=== PATIENT | female | born 1995 | race Hispanic/Latino ===

== ENCOUNTER 2019-04-22 01:40 | Outpatient (CLI) | payer MEDICAID ==
[2019-04-22] MEDS ORDERED: LACTATED RINGERS 1,000 ML IV ONE (06:02)
[2019-04-22 08:57] VITALS: BP 102/55
== END 2019-04-22 09:09 | disposition home or self-care (01) ==
LOC: TRG 01:40
PROVIDERS: ATTEND Obstetrics & Gynecology
DX: O62.9 Abnormality of forces of labor, unspecified (principal); Z3A.39 39 weeks gestation of pregnancy
CPT/HCPCS: 96360; J7120

== ENCOUNTER 2019-04-23 23:18 | Inpatient (IN) | payer MEDICAID ==
[2019-04-23] MEDS ORDERED: OXYTOCIN 20 UNIT/1000ML DRIP 20 UNITS/1,000 ML BAG IV SCH (23:45)
[2019-04-23] MEDS ORDERED: TERBUTALINE 1 MG/1 ML INJ IVP PRN (23:49)
[2019-04-23] MEDS ORDERED: DINOPROSTONE 10 MG VAG SUPP VG ONE (23:49)
[2019-04-23] MEDS ORDERED: TERBUTALINE 1 MG/1 ML INJ SUB-Q PRN (23:49)
[2019-04-23] MEDS ORDERED: ePHEDrine SULFATE 50 MG/1 ML INJ IV PRN (23:49)
[2019-04-23] MEDS ORDERED: MINERAL OIL 30 ML ORAL LIQD PO PRN (23:49)
[2019-04-23] MEDS ORDERED: LIDOCAINE (2%) 20 MG/1 ML VIAL 20 ML MDV INFILTRATI ONE (23:49)
[2019-04-24 00:41] LABS: Hematocrit 37.4 % (30.3-42.9); Hemoglobin 12.8 gm/dl (10.1-14.3); Mean Corpuscular HGB Conc 34 % (30-34); Mean Corpuscular Volume 95 fl (79-97); Platelet Count 210 K/mm3 (140-440); Red Blood Count 3.94 M/mm3 (3.65-5.03); Red Cell Distribution Width 12.8 % (13.2-15.2)
[2019-04-24] MEDS: LACTATED RINGERS 1,000 ML IV SCH ×2 (01:56→08:55)
[2019-04-24] MEDS ORDERED: BUTORPHANOL 2 MG/1 ML INJ IV PRN (04:10)
[2019-04-24] MEDS ORDERED: ZOLPIDEM 5 MG TAB PO ONE (04:10)
[2019-04-24] MEDS ORDERED: fentaNYL 100 MCG/2 ML INJ IV PRN (04:11)
--- NOTE | 2019-04-24 08:49 | History and Physical Report ---
History of Present Illness Date of examination: 04/24/19 Date of admission: 04/23/19 23:25 Chief complaint: SROM clear fluid @ 2100 History of present illness: Pt is a 23yo WF EDC 04/23/19; EGA 40 1/7 weeks presents to L&D complaining of SROM clear fluid @ 2100 04/23/19 followed by irregular contractions. She received care at [facility] [place] since 12 weeks and course has been unremarkable except abnormal Pap. records are available and GBS is Negative. 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 Family/Genetic History: hypertension, cancer Social history: no significant social history, single - Obstetrical History Expected Date of Delivery: 04/23/19 Actual Gestation: 40 Week(s) 1 Day(s) : 1 Medications and Allergies Allergies Allergy/AdvReac Type Severity Reaction Status Date / Time No Known Allergies Allergy Verified 04/22/19 06:05 Home Medications Medication Instructions Recorded Confirmed Last Taken Type Vitamin 1 tab PO DAILY 04/24/19 04/24/19 04/23/19 History Active Meds: Active Medications Butorphanol Tartrate (Stadol) 2 mg IV Q2H PRN PRN Reason: Pain, Moderate (4-6) Last Admin: 04/24/19 04:18 Dose: 2 mg Documented by: Ephedrine Sulfate (Ephedrine Sulfate) 10 mg IV Q2M PRN PRN Reason: Hypotension Fentanyl (Sublimaze) 100 mcg IV Q2H PRN PRN Reason: Labor Pain Oxytocin/Sodium Chloride (Pitocin/Ns 20 Unit/1000ml Drip) 20 units in 1,000 mls @ 125 mls/hr IV DIRECT CHAYO Lactated Ringer's (Lactated Ringers) 1,000 mls @ 125 mls/hr IV DIRECT CHAYO Last Admin: 04/24/19 01:56 Dose: 125 mls/hr Documented by: Mineral Oil (Mineral Oil) 30 ml PO QHS PRN PRN Reason: Constipation Terbutaline Sulfate (Brethine) 0.25 mg SUB-Q ONCE PRN PRN Reason: Hyperstimulation/Hypertonicity Terbutaline Sulfate (Brethine) 0.25 mg IVP ONCE PRN PRN Reason: Hyperstimulation/Hypertonicity Review of Systems All systems: negative - Vital Signs Vital signs: Vital Signs Pulse BP 82 103/63 04/24/19 00:07 04/24/19 00:07 Temp Pulse Resp BP Pulse Ox 97.7 F 76 18 119/35 96 04/24/19 08:26 04/24/19 08:39 04/24/19 08:26 04/24/19 08:26 04/24/19 08:39 - Physical Exam Cardiovascular: Regular rate Lungs: Positive: Clear to auscultation Abdomen: Positive: normal appearance Genitourinary (Female): Positive: normal external genitalia Vagina: Positive: normal moisture Uterus: Positive: enlarged Extremities: Positive: normal - Obstetrical FHR: category 1 Uterine Contraction Monitor Mode: External Cervical Dilatation: 1 (per nurse) Cervical Effacement Percentage: 50 (per nurse) station: -3 Uterine Contraction Pattern: Regular Uterine Tone Measurement Phase: Contraction Uterine Contraction Intensity: Strong/Firm Results Result Diagrams: 04/24/19 00:20 Abnormal lab results 04/24/19 Range/Units 00:20 WBC 14.2 H (4.5-11.0) K/mm3 RDW 12.8 L (13.2-15.2) % All other labs normal. Assessment and Plan - Patient Problems (1) 40 weeks gestation of Onset Date: 04/24/19 Current Visit: Yes Status: Acute Plan to address problem: A: IUP @ 40 1/7 weeks in labor Abnormal Pap P: Admit to L&D for expectant vaginal delivery Pitocin augmentation of labor Repeat Pap at visit
[2019-04-24] MEDS ORDERED: LACTATED RINGERS 1,000 ML IV SCH (09:00)
[2019-04-24] MEDS ORDERED: LIDOCAINE (2%) 20 MG/1 ML VIAL 20 ML MDV INFILTRATI NR (09:00)
[2019-04-24] MEDS ORDERED: OXYTOCIN 20 UNIT/1000ML DRIP 20 UNITS/1,000 ML BAG IV SCH ×2 (09:30→15:00)
[2019-04-24] MEDS ORDERED: TERBUTALINE 1 MG/1 ML INJ IVP PRN (09:30)
[2019-04-24] MEDS ORDERED: ePHEDrine SULFATE 50 MG/1 ML INJ IV PRN ×2 (09:30→11:59)
[2019-04-24] MEDS ORDERED: TERBUTALINE 1 MG/1 ML INJ SUB-Q PRN (09:30)
[2019-04-24] MEDS ORDERED: MINERAL OIL 30 ML ORAL LIQD PO PRN (09:30)
[2019-04-24] MEDS ORDERED: OXYTOCIN DRIP 30 UNITS/500 ML BAG IV SCH ×2 (09:30)
[2019-04-24] MEDS ORDERED: DEXMEDETOMIDINE 200 MCG/2 ML VIAL IV ONE (11:39)
--- NOTE | 2019-04-24 11:57 | Anesthesia Consultation ---
Anesthesia Consult and Med Hx Date of service: 04/24/19 - Airway Anesthetic Teeth Evaluation: Good ROM Head & Neck: Adequate Mental/Hyoid Distance: Adequate Mallampati Class: Class II Intubation Access Assessment: Good - Pulmonary Exam CTA: Yes - Cardiac Exam Cardiac Exam: RRR - Pre-Operative Health Status ASA Pre-Surgery Classification: ASA2, Emergency Proposed Anesthetic Plan: Epidural - Pulmonary Hx Asthma: Yes (childhood) COPD: No Hx Pneumonia: No - Cardiovascular System Hx Hypertension: No - Central Nervous System Hx Seizures: No Hx Psychiatric Problems: No - Endocrine Hx Renal Disease: No Hx End Stage Renal Disease: No Hx Hypothyroidism: No Hx Hyperthyroidism: No - Hematic Hx Anemia: Yes (childhood) Hx Sickle Cell Disease: No - Other Systems Hx Alcohol Use: No
[2019-04-24] MEDS ORDERED: NALOXONE 2 MG/2 ML INJ IV PRN (11:59)
[2019-04-24] MEDS ORDERED: fentaNYL-BUPIV 2 MCG/ML-0.125% 200 MCG/100 ML BAG EPIDURAL SCH (12:00)
--- NOTE | 2019-04-24 12:01 | Progress Note ---
Labor Epidural - Labor Epidural Start Time: 11:43 Stop Time: 11:47 Performed by:: MANDA STEWARD Procedure: Patient is requesting a laboring epidural for laboring pain. Patient IDed, H&P reviewed, all questions and concerns were answered, and consent was signed. Timeout was performed at bedside. Patient in sitting position. Sterile prep and drape was performed. 3 ml of 1% lidocaine skin wheal at L 3- L 4. 18-gauge Touhy epidural needle was advanced to loss of resistance with air technique. Negative CSF negative blood. Epidural catheter advanced to 15 centimeters. Negative aspiration negative test dose. Sterile dressing applied. Patient tolerated procedure.
--- NOTE | 2019-04-24 14:53 | Procedure Note ---
OB Delivery Note - Delivery Date of Delivery: 04/24/19 Surgeon: LIDYA ALTAMIRANO Estimated blood loss: 200cc - Vaginal Delivery presentation: vertex Delivery position: OA Intrapartum events: PROM->1hr before delivery Delivery induction: cervidil Delivery augmentation: pitocin Delivery monitor: external FHT, external uterine Route of delivery: Delivery placenta: spontaneous Delivery cord: nuchal cord, 3 umbilical vessels Episiotomy: none Delivery laceration: 1st degree, vaginal side wall Delivery repair: vicryl Anesthesia: epidural Delivery comments: delivered OA and placed on Mom's chest for [id number] bonding and delayed cord clamping, cut by Dad - Infant A at 1 minute: 8 at 5 minutes: 9 Infant Gender: Male ([id number])
[2019-04-24] MEDS ORDERED: PROMETHAZINE 25 MG TAB PO PRN (14:54)
[2019-04-24] MEDS ORDERED: diphenhydrAMINE 25 MG CAP PO PRN (14:54)
[2019-04-24] MEDS ORDERED: LANOLIN/ZINC/DIMETHICONE (LANSINOH) 7 GM TP PRN (14:54)
[2019-04-24] MEDS ORDERED: ACETAMINOPHEN 325 MG TAB PO PRN (14:54)
[2019-04-24] MEDS ORDERED: PROMETHAZINE 25 MG RECT SUPP PR PRN (14:54)
[2019-04-24] MEDS ORDERED: WITCH HAZEL/ GLYCERIN PAD TP PRN (14:54)
[2019-04-24] MEDS ORDERED: BENZOCAINE/MENTHOL 20/0.5% TOP SPRAY 56 GM TP PRN (14:54)
[2019-04-24] MEDS ORDERED: ONDANSETRON 4 MG/2 ML INJ IV PRN (14:54)
[2019-04-24] MEDS ORDERED: HYDROcodone/ACETAMINOPHEN 5-325 MG TAB PO PRN (14:54)
[2019-04-24] MEDS ORDERED: MAGNESIUM HYDROXIDE (MOM) ORAL LIQD UDC PO PRN (14:54)
[2019-04-24] MEDS: FERROUS SULFATE 325 MG TAB PO SCH (22:16)
[2019-04-24] MEDS: DOCUSATE SODIUM 100 MG CAP PO SCH (22:16)
[2019-04-24] MEDS: IBUPROFEN 600 MG TAB PO SCH (22:17)
[2019-04-25 05:52] LABS: Hematocrit 32.4 % (30.3-42.9)
[2019-04-25] MEDS ORDERED: TETANUS,DIPH,PERTUSS(ACELL) VACCINE 0.5 ML SYRINGE IM ONE (06:00)
[2019-04-25] MEDS ORDERED: MEASLES, MUMPS & RUBELLA 12,500 UNIT/0.5 ML VACCINE SUB-Q ONE (06:00)
[2019-04-25] MEDS: IBUPROFEN 600 MG TAB PO SCH ×3 (06:03→18:00)
[2019-04-25] MEDS ORDERED: PRENATAL VIT27-FE FUMARATE-FOLIC ACID VIT TAB PO SCH (10:00)
--- NOTE | 2019-04-25 10:49 | Progress Note ---
Assessment and Plan - Patient Problems (1) 40 weeks gestation of Onset Date: 04/24/19 Current Visit: Yes Status: Resolved (2) (normal spontaneous vaginal delivery) Onset Date: 04/25/19 Current Visit: Yes Status: Resolved Plan to address problem: A: S/P - PPD #1 Doing well Asymptomatic anemia - stable P: May go home today. Subjective - Subjective Date of service: 04/25/19 Principal diagnosis: s/p - PPD #1 Interval history: Pt is feeling well without complaints. Bleeding improved. Patient reports: appetite normal, voiding normally, pain well controlled, flatus, ambulating normally, no dizzy ambulation, no nauseated : doing well, nursing well, bottle feeding Objective - Vital Signs Latest vital signs: Vital Signs Temp Pulse Resp BP BP Pulse Ox 04/25/19 07:30 98.0 F 95 H 16 98/54 96 04/25/19 00:56 98.5 F 88 18 99/50 95 04/24/19 20:36 98.1 F 80 16 108/59 100 04/24/19 17:01 99.1 F 98 H 16 108/71 100 04/24/19 16:00 98.8 F 04/24/19 15:25 108 H 104/51 04/24/19 15:10 109 H 107/54 04/24/19 14:55 104 H 108/54 04/24/19 14:40 121 H 95/67 04/24/19 13:53 145 H 93 04/24/19 13:48 117 H 97 04/24/19 13:43 119 H 97 04/24/19 13:38 129 H 99 04/24/19 13:33 115 H 98 04/24/19 13:29 85 87 04/24/19 13:28 117 H 100 04/24/19 13:23 117 H 99 04/24/19 13:12 96 H 131/76 04/24/19 13:02 102 H 100 04/24/19 12:57 100 H 104/58 100 04/24/19 12:52 113 H 100 04/24/19 12:47 100 H 100 04/24/19 12:42 80 100 04/24/19 12:40 91 H 117/69 04/24/19 12:37 96 H 100 04/24/19 12:32 97 H 100 04/24/19 12:27 100 H 100 04/24/19 12:26 92 H 116/67 04/24/19 12:22 103 H 99 04/24/19 12:17 111 H 99 04/24/19 12:12 108 H 99 04/24/19 12:07 108 H 110/67 100 04/24/19 12:03 77 120/68 04/24/19 12:02 73 100 04/24/19 11:58 71 105/55 04/24/19 11:57 79 100 04/24/19 11:52 77 100 04/24/19 11:50 110 H 102/73 04/24/19 11:49 117 H 94 04/24/19 11:48 116 H 113/68 04/24/19 11:47 102 H 95 04/24/19 11:43 107 H 131/69 04/24/19 11:42 111 H 98 04/24/19 11:41 94 04/24/19 11:37 104 H 99 04/24/19 11:32 109 H 99 04/24/19 11:27 113 H 100 04/24/19 11:22 98 H 100 04/24/19 11:17 82 111/68 99 04/24/19 11:12 89 95 04/24/19 11:09 91 H 94 04/24/19 11:07 101 H 98 04/24/19 11:02 84 97 04/24/19 10:59 79 94 04/24/19 10:57 81 97 04/24/19 10:52 64 98 04/24/19 10:51 89 94 Intake and Output 04/24/19 04/25/19 04/25/19 22:59 06:59 14:59 Intake Total 480 360 Output Total 1600 Balance -1120 360 Intake: Oral 360 Intake, Free Water 480 Output: Urine 1600 Void 1600 Other: Total, Intake Amount 360 Total, Output Amount 800 # Voids Void 1 Estimated Blood Loss 200 - Exam Breasts: Present: deferred Uterus: Present: normal, firm, fundal height below umbilicus Extremities: Present: normal - Labs Labs: Laboratory Tests 04/24/19 04/24/19 04/25/19 00:20 00:20 04:10 WBC 14.2 H RBC 3.94 Hgb 12.8 11.0 Hct 37.4 32.4 MCV 95 MCH 32 MCHC 34 RDW 12.8 L Plt Count 210 Blood Type O POSITIVE Antibody Screen Negative
[2019-04-25] MEDS: FERROUS SULFATE 325 MG TAB PO SCH (11:00)
[2019-04-25] MEDS: DOCUSATE SODIUM 100 MG CAP PO SCH (11:01)
--- NOTE | 2019-04-25 11:04 | Discharge Summary ---
Providers - Providers Date of Admission: 04/23/19 23:25 Date of discharge: 04/25/19 Attending physician: LIDYA ALTAMIRANO Primary care physician: LIDYA ALTAMIRANO Hospitalization Reason for admission: active labor, rupture of membranes, IUP at term Delivery: Episiotomy: none Laceration: vaginal side wall, 1st degree Incision: normal Other procedures: none complications: none Discharge diagnosis: IUP at term delivered baby: male Hospital course: Unremarkable. Condition at discharge: Good Disposition: DC-01 TO HOME OR SELFCARE - Discharge Diagnoses (1) 40 weeks gestation of Status: Resolved (2) (normal spontaneous vaginal delivery) Status: Resolved Plan - Discharge Medications Prescriptions: Ferrous Sulfate [Feosol 325 MG tab] 325 mg PO BID #60 tablet Ibuprofen [Motrin 600 MG tab] 600 mg PO Q6H #30 tablet Vit-Fe Fumar-FA [ Vitamin] 1 each PO QDAY #30 tablet - Provider Discharge Summary Activity: routine, no sex for 6 weeks, no heavy lifting 4 weeks, no strenuous exercise Diet: routine Instructions: routine Additional instructions: [] Smoking cessation referral if applicable(refer to patient education folder for contact #) [] Refer to [facility]'s [facility] Booklet Call your doctor immediately for: * Fever > 100.5 * Heavy vaginal bleeding ( >1 pad per hour) * Severe persistent headache * Shortness of breath * Reddened, hot, painful area to leg or breast * Drainage or odor from incision. * Keep incision clean and dry at all times and follow doctor's instructions regarding bathing/showering - Follow up plan Follow up: LIDYA ALTAMIRANO MD [Primary Care Provider] - 6 Weeks DEBRA VALDEZ CNM [Advanced Practice Nurse] - 6 Weeks
--- NOTE | 2019-04-25 13:30 | Post Anesthesia Evaluation ---
- Post Anesthesia Evaluation Patient Participated: Yes Airway Patent: Yes Stable Respiratory Function: Yes Nausea/Vomiting: No Temp > 96.8F: Yes Pain Manageable: Yes Adequeate Hydration: Yes Anesthesia Complications: No Block Receding Appropriately: Yes Patient on Ventilator: No
[2019-04-25 17:11] VITALS: BP 109/62
== END 2019-04-25 18:30 | disposition home or self-care (01) | DRG 775 ==
LOC: TRG 23:18 → LD 23:25 → OB 04-24 16:23
PROVIDERS: ADMIT Obstetrics & Gynecology; ATTEND Obstetrics & Gynecology
PROC: 10E0XZZ Delivery of Products of Conception, External Approach (ICD-10-PCS; principal; 2019-04-24)
PROC: 0HQ9XZZ Repair Perineum Skin, External Approach (ICD-10-PCS; 2019-04-24)
PROC: 3E0R3BZ Introduction of Anesthetic Agent into Spinal Canal, Percutaneous Approach (ICD-10-PCS; 2019-04-24)
PROC: 00HU33Z Insertion of Infusion Device into Spinal Canal, Percutaneous Approach (ICD-10-PCS; 2019-04-24)
PROC: 3E0P7VZ Introduction of Hormone into Female Reproductive, Via Natural or Artificial Opening (ICD-10-PCS; 2019-04-24)
PROC: 3E0234Z Introduction of Serum, Toxoid and Vaccine into Muscle, Percutaneous Approach (ICD-10-PCS; 2019-04-25)
PROC: 3E0134Z Introduction of Serum, Toxoid and Vaccine into Subcutaneous Tissue, Percutaneous Approach (ICD-10-PCS; 2019-04-25)
DX: O42.02 Full-term premature rupture of membranes, onset of labor within 24 hours of rupture (principal); O69.81X0 Labor and delivery complicated by cord around neck, without compression, not applicable or unspecified; O99.52 Diseases of the respiratory system complicating childbirth; J45.909 Unspecified asthma, uncomplicated; O70.0 First degree perineal laceration during delivery; O99.02 Anemia complicating childbirth; Z3A.40 40 weeks gestation of pregnancy; Z37.0 Single live birth; Z23 Encounter for immunization; Z82.49 Family history of ischemic heart disease and other diseases of the circulatory system; Z80.9 Family history of malignant neoplasm, unspecified; Z79.899 Other long term (current) drug therapy
CPT/HCPCS: 36415; 59200; 85014; 85018; 85027; 86850; 86900; 86901; 90715; 96360; G0378; J0595; J2590; J3010; J3490; J7120